=== PATIENT | female | born 1955 | race Caucasian/White ===

== ENCOUNTER 2023-11-28 02:04 | Outpatient (CLI) | payer MEDICARE, SELFPAY | END 2023-11-28 02:05 | disposition home or self-care (01) | LOC: AMB 12-01 18:12 | PROVIDERS: PCP Family Medicine; Visit Provider Family Medicine | DX: R53.1 Weakness (principal) | CPT/HCPCS: A0998 ==

== ENCOUNTER 2024-01-12 07:19 | Outpatient (CLI) | payer MEDICARE, SELFPAY | END 2024-01-12 07:20 | disposition home or self-care (01) | LOC: AMB 01-22 18:38 | PROVIDERS: PCP Family Medicine; Visit Provider Family Medicine | DX: R53.1 Weakness (principal); E66.9 Obesity, unspecified | CPT/HCPCS: A0998 ==

== ENCOUNTER 2024-03-28 03:01 | Outpatient (CLI) | payer MEDICARE, SELFPAY | END 2024-03-28 03:02 | disposition home or self-care (01) | LOC: AMB 04-03 18:58 | PROVIDERS: PCP Family Medicine; Visit Provider Family Medicine | DX: R20.0 Anesthesia of skin (principal) | CPT/HCPCS: A0998 ==

== ENCOUNTER 2024-04-13 05:25 | Outpatient (CLI) | payer MEDICARE, SELFPAY ==
--- OUTSIDE RECORDS SUMMARY | 2024-04-16 22:26 | XMS_ITS | Clinical Summary ---
Author Organization [employer] Address [place], [place] [address] Care Team Providers Care Enroller Name Role Phone Delia Hinds MD Primary Care Provide r Allergies Active Allergy Reactions Criticality Noted Date Comments Cephalexin Stomach Upset 04/16/2024 Fd And C No.5 (Tartrazine) Shortness Of [...] Encounters Date Type Department Care Team Description 04/16/2024 4:15 PM CDT Phone Office Visit [facility] [address] [place] [address] Delia Hinds MD ER Follow up (Abdominal pain/Took last antibiotic at 11 am today./Has not been taking any other medication since Monday.) 04/16/2024 Travel 04/16/2024 Nurse Triage [facility] [place] [address] [address] Delia Hinds MD Abdominal Pain 04/13/2024 Orders Only [facility] Scanner 1 scan: (1-Ord) NEVAEH CASTRO LT, 04/13/2024 03/25/2024 3:30 PM CDT Telemedicine [facility] [address] [place] [address] Hasmukh Blake PsyD, LP Individual Therapy; Telehealth 03/04/2024 2:45 PM CDT Telemedicine [facility] [address] [place] [address] Hasmukh Blake PsyD, LP Individual Therapy; Telehealth 03/04/2024 Travel 02/19/2024 2:00 PM CDT Telemedicine [facility] [address] [place] [address] Hasmukh Blake PsyD, MITRA Telehealth; Trmt Plan; Family Therapy 02/19/2024 Travel 01/25/2024 4:00 PM CDT Home Care Visit [facility] [address] [place] [address] Isauro Stapleton, PT PT - OASIS DISCHARGE 01/25/2024 Travel 01/16/2024 4:00 PM CDT Home Care Visit [facility] [address] [place] [address] Isauro Stapleton, PT PT - MISSED VISIT [...] Care Team (Late st Contact Info) Description 05/03/2024 12:45 PM CDT Telemedicine [facility] [address] [place] [phone] Hasmukh Blake, Harsha, LP [address] [place] [address] Health Maintenance Due Date Last Done Comments [...] Procedure Name Priority Date/Time Associated Diagnosis Comments SCAN-RADIOLOGY REPORT 04/13/2024 12:00 AM CDT LIPID PANEL W REFLEX MEASURED LDL Routine 03/12/2022 12:15 PM CDT Lipid screening from Last 3 Months or Most Recently Relevant to Health Maintenance Results * SCAN-RADIOLOGY REPORT (04/13/2024 12:00 AM CDT) Anatomical Region Laterality Modality Other Scanner OTHER * (ABNORMAL) LIPID PANEL W REFLEX MEASURED LDL (03/12/2022 12:15 PM CDT) CHOLESTEROL,TOTAL 239(H) 100 - 199 mg/dL 03/12/2022 1:23 PM T [facility] TRIGLYCERIDES 220(H) <150 mg/dL 03/12/2022 1:23 PM T [facility] HDL CHOLESTEROL 45 >40 mg/dL 1:23 PM [facility] NON-HDL CHOLESTEROL 194(H) <145 mg/dl 03/12/2022 1:23 PM [facility] CHOL/HDL RATIO 5.31(H) <4.50 03/12/2022 1:23 PM [facility] LDL CHOLESTEROL 150(H) <=130 mg/dL 03/12/2022 1:23 PM T [facility] VLDL CHOLESTEROL 44(H) <=30 mg/dL 03/12/2022 1:23 PM [facility] PROVIDER ORDERED STATUS RANDOM 03/12/2022 1:23 PM [facility] Blood BLOOD SPECIMEN / Unknown Venipuncture / Unknown 03/12/2022 12:15 PM CDT 03/12/2022 1:01 PM CDT Delia Hinds MD CHEMISTRY [facility] [address] [place] [address] from Last 3 Months or Most Recently Relevant to Health Maintenance Care Teams Enroller Relationship Specialty Start Date End Date Delia Hinds MD [address] [place] [address] PCP - General Family Practice 11/10/20
--- NOTE | 2024-04-17 14:39 | PC.SOCIAL ---
Social work follow up: Patient has not communicated her list of home care agencies she wants social work program coordinator to contact regarding MD order for home care written on 04/13/24. Another phone message was left on pt's phone requesting follow up from her regarding this. Also sent email to her requesting follow up. production utility worker is unable to move forward on arranging home care at this time as patient is not responding to communications. Emailed provider who ordered home care to communicate this information. Called [facility] Vulnerable Adult worker, Cecilia Gottlieb and informed her of patient not following through with facilitation of arranging home care order.
== END 2024-04-13 05:26 | disposition home or self-care (01) ==
LOC: AMB 04-16 22:24
PROVIDERS: PCP Family Medicine; Visit Provider Student in an Organized Health Care Education/Training Program
DX: R10.9 Unspecified abdominal pain (principal)
CPT/HCPCS: A0425; A0427

== ENCOUNTER 2024-04-13 06:41 | Emergency (ER) | payer MEDICARE, SELFPAY ==
--- NOTE | 2024-04-13 07:02 | CRLHL7_ITS ---
For Patients: As a result of the Century Cures Act, medical imaging exams and procedure reports are released immediately into your electronic medical record. You may view this report before your referring provider. If you have questions, please contact your health care provider. Indication: Pain. Injury. Technique: A total of three-view of the left shoulder were acquired. Comparison: None Findings: Bones: There are limitations due to soft tissue attenuation factors. No visible fracture. Joint spaces: Unremarkable. Soft tissues: Unremarkable. Impression: Limited study due to soft tissue attenuation factors. No visible acute fracture, dislocation or destructive process. Dictated by Eddie Major MD @ 04/13/2024 8:06:52 AM (Electronically Signed)
[2024-04-13 07:03] VITALS: BP 158/73; PULSE 99; RESP 24; TEMP 36.8; O2SAT 92
--- NOTE | 2024-04-13 07:33 | ED.GENADULT ---
HPI - General Adult General Date Seen: 04/13/24 Chief complaint: Abdominal Pain Stated complaint: Abdominal Pain Time Seen by Provider: 04/13/24 06:55 Source: patient and EMS Mode of arrival: EMS Limitations: no limitations History of Present Illness HPI narrative: Patient is a 68-year-old female presenting to the emergency department for suprapubic pain. She believe she had a UTI. Earlier in the night her arrived in the emergency department in attempt to get antibiotics for her but we informed him that she needs to be seen before we can do that. EMS was called to the house right after that. It took 10 people to get her out of her basement which she has not been out of for between 2 and 4 years. She is unable to ambulate on her own and states when she to go the bathroom just puts a diaper underneath her and then cleans her up. She states but time she arrived to the emergency department symptoms have fully resolved and she is no longer having any abdominal pain. She does think she has a UTI but does states she has no previous UTIs so has nothing to compare them to. Also states she was having constipation for 4 days but took some stool softeners and had an episode of diarrhea at about 03:00. Does have some left shoulder pain from a fall with a lift assist the few weeks ago. Denies nausea, vomiting, chest pain, shortness of breath, headache, weakness, numbness. Related Data Home Medications ?Medication ?Instructions ?Recorded ?Confirmed amlodipine 2.5 mg tablet 2.5 mg PO DAILY 04/13/24 04/13/24 gabapentin 300 mg capsule mg PO 04/13/24 lisinopril 5 mg tablet mg PO 04/13/24 pantoprazole 40 mg tablet,delayed 40 mg PO DAILY 04/13/24 04/13/24 release venlafaxine 150 mg 150 mg PO DAILY 04/13/24 04/13/24 capsule,extended release 24 hr Previous Rx's ?Medication ?Instructions ?Recorded cephalexin 500 mg capsule 500 mg PO QID #20 caps 04/13/24 nystatin 100,000 unit/gram topical 1 applic topical BID #30 grams 04/13/24 cream Allergies Allergy/AdvReac Type Severity Reaction Status Date / Time No Known Drug Allergies Allergy Verified 04/13/24 07:03 Review of Systems Status of ROS: Reports: 10 or more systems reviewed and unremarkable except as noted in History and below [facility] Social History Smoking Status: Never smoker Second hand tobacco smoke exposure: No How often do you have a drink containing alcohol: never How often do you have six or more drinks on one occasion: Never AUDIT-C Alcohol total score: 0 Non-prescribed substance use: denies use service: No Exam Narrative: Exam Narrative: Const: Morbidly obese, very poor hygiene noted Eyes: PERRL, no conjunctival injection, and symmetrical lids HENT: Atraumatic external nose and ears. Moist mucous membranes. Neck: Symmetric, trachea midline, No thyromegaly. CVS: RRR, No murmurs or gallops. Peripheral pulses 2+ and equal in all extremities RESP: Unlabored respiratory effort. Clear to auscultation bilaterally. GI: Nontender/Nondistended, No rebound or guarding. MSK:Extremities w/o deformity, Normal Active ROM Skin: Apparent fungal infection below bilateral breast, apparent fungal infection throughout the pannus, cellulitic appearance bilateral upper medial thighs with stage I ulcers bilaterally Neuro: Normal Muscle tone, No focal neurological deficits. Psych: Awake, Alert, & Oriented x3. Appropriate mood and affect. Const: Vital Signs, click to edit/add: Vital Signs - 24 hr 04/13/24 07:03 Temperature 98.2 F Pulse Rate [Pulse Oximeter] 99 Respiratory Rate 24 Blood Pressure [Le ft Forearm] 158/73 H Pulse Oximetry 92 Oxygen Delivery Me thod Room Air Course Vital Signs Vital signs: Initial Vital Signs Temperature 98.2 F 04/13/24 07:03 Temperature Source Temporal Artery Scan 04/13/24 07:03 Pulse Rate 99 04/13/24 07:03 Pulse Rhythm Regular 04/13/24 07:03 Pulse Strength 3+ Normal 04/13/24 07:03 Respiratory Rate 24 04/13/24 07:03 Blood Pressure 158/73 H 04/13/24 07:03 Blood Pressure Mean 101 04/13/24 07:03 Blood Pressure Position Sitting 04/13/24 07:03 Pulse Oximetry 92 04/13/24 07:03 Oxygen Delivery Method Room Air 04/13/24 07:03 Vital Signs Temperature 98.2 F 04/13/24 07:03 Pulse Rate 99 04/13/24 07:03 Respiratory Rate 24 04/13/24 07:03 Blood Pressure 158/73 H 04/13/24 07:03 Pulse Oximetry 92 04/13/24 07:03 Oxygen Delivery Method Room Air 04/13/24 07:03 Temperature 98.2 F 04/13/24 07:03 Pulse Rate 99 04/13/24 07:03 Respiratory Rate 24 04/13/24 07:03 Blood Pressure 158/73 H 04/13/24 07:03 Pulse Oximetry 92 04/13/24 07:03 Oxygen Delivery Method Room Air 04/13/24 07:03 Medical Decision Making MDM Narrative Medical decision making narrative: This is a 68-year-old female who is morbidly obese presenting for concerns of a UTI. Her symptoms have resolved now but will do a CBC, CMP, urinalysis. Also x-ray the left shoulder. Is not requesting anything for pain or nausea at this time. She states her is taking care of her and is doing a good job but I do not believe she is getting the appropriate amount of care that is required for a person of her size. EMS states they are filing a vulnerable adult. She believes her is able but he care of her at home but it does not appear that that is truly the case and she requires more help than what her can offer at this time. Since her pain is no longer there I do not believe any imaging of her abdomen is necessary. White cell count came back at 17.35. It is neutrophil predominant. This is sinus she has an infection somewhere but I am not sure where at this time. Her vital signs are stable. CMP shows no concerning abnormalities. Urinalysis returned showing no obvious signs of a UTI. At this time I am unsure what is causing this elevated white blood cell count. Some of it can be related to her obesity but not all. I spoke to her about admission for placement which she does not want but is open to home health. I spoke to our hospitalist possible admission if he states that a white count of 17 is not a reason alone to admit the patient. This very well could be the patient's baseline after she has been homebound for several years. The I will discharge her home. She is agreeable to this plan. While she does not have convincing UTI I will treat her with Keflex and I will give her nystatin cream. I filled out the paperwork for home health. Lab Data Labs: Lab Results 04/13/24 04/13/24 Range/Units 08:00 08:47 WBC 17.35 H (4.50-11.00) K/uL RBC 5.38 H (4.00-5.20) m/uL Hgb 13.8 (12.0-16.0) gm/dL Hct 44.7 (33.0-51.0) % MCV 83 (80-100) fL MCH 26 (26-34) pg MCHC 31 L (32-36) gm/dL RDW Coeff of Valentine 14.7 (11.5-15.5) % Plt Count 427 (140-440) K/uL Neut % (Auto) 89.9 H (42.0-72.0) % Lymph % (Auto) 3.6 L (20-44) % Mora % (Auto) 5.8 (0.0-11.0) % Eos % (Auto) 0.2 (0.0-7.0) % Baso % (Auto) 0.2 (0.0-3.0) % Neut # (Auto) 15.60 H (1.7-7.0) K/uL Lymph # (Auto) 0.60 L (0.90-2.90) K/uL Mora # (Auto) 1.00 H (0.00-0.90) K/UL Eos # (Auto) 0.00 (0.00-0.50) K/uL Baso # (Auto) 0.00 (0.00-0.30) K/uL Abs Immat Gran (auto) 0.10 (0.00-0.30) K/uL Imm/Tot Granulo (auto) 0.3 % Sodium 138 (135-149) mmol/L Potassium 3.7 (3.6-5.1) mmol/L Chloride 104 (96-114) mmol/L Carbon Dioxide 26 (20-32) mmol/L Anion Gap 8 (7-15) mEq/L BUN 10 (7-30) mg/dL Creatinine 0.9 (0.5-1.5) mg/dL Estimated GFR 71 ml/min Glucose 132 H (60-115) mg/dL Calcium 9.7 (8.4-10.6) mg/dL Total Bilirubin 1.2 (0.1-1.5) mg/dL AST 30 (12-35) U/L ALT 21 (4-35) U/L Alkaline Phosphatase 79 (40-150) U/L Total Protein 7.6 (6.0-8.3) g/dL Albumin 4.3 (3.3-5.0) g/dL Urine Color Yellow (Yellow) Urine Appearance Clear (Clear) Urine pH 8.5 (5.0-8.5) Ur Specific [place] 1.020 (1.000-1.030) Urine Protein Negative (Negative) Urine Glucose (UA) Negative (Negative) Urine Ketones Negative (Negative) Urine Blood Trace-intact A (Negative) Urine Nitrite Negative (Negative) Urine Bilirubin Negative (Negative) Urine Urobilinogen 0.2 (0.2-1.0) Ur Leukocyte Esterase Trace A (Negative) Urine RBC 0-2 (0-2) Urine WBC 0-2 (0-5) Ur Squamous Epith Cells Moderate A (None-Few) Urine Bacteria Moderate A (None) Urine Yeast Few A (None) Imaging Data Left shoulder x-ray: Attestation: I have reviewed the pertinent imaging results. Radiologist's impression: Limited study due to soft tissue attenuation factors. No visible acute fracture, dislocation or destructive process. Dictated by Eddie Major MD @ 04/13/2024 8:06:52 AM Discharge Plan Discharge Clinical Impression: Acute UTI, Milka infection Patient Disposition: Home, Self-Care Condition: Stable Instructions: Yeast Infection (ED) Additional Instructions: Make sure to clean and dry your skin folds and placed on nystatin cream as directed. Use the antibiotics as directed. He should get a call on Monday to set up home health. Return for new or worsening symptoms Prescriptions: New nystatin 100,000 unit/gram cream 1 applic topical BID Qty: 30 0RF cephalexin 500 mg capsule 500 mg PO QID Qty: 20 0RF No Action venlafaxine 150 mg capsule,extended release 24hr 150 mg PO DAILY amlodipine 2.5 mg tablet 2.5 mg PO DAILY pantoprazole 40 mg tablet,delayed release (DR/EC) 40 mg PO DAILY gabapentin 300 mg capsule PO lisinopril 5 mg tablet PO Follow Up/Referrals: Delia Hinds MD [Primary Care Provider] - Stand Alone Forms: [facility] Info Instructions
[2024-04-13 08:06] LABS: Basophils Percent Auto 0.2 % (0.0-3.0); Eosinophils Percent Auto 0.2 % (0.0-7.0); Hematocrit 44.7 % (33.0-51.0); Hemoglobin* 13.8 gm/dL (12.0-16.0); Immature Granulocytes Pct Auto 0.3 %; Lymphocytes Percent Auto 3.6 % (20-44); Mean Corpuscular HGB Conc 31 gm/dL (32-36); Mean Corpuscular Hemoglobin 26 pg (26-34); Mean Corpuscular Volume 83 fL (80-100); Monocytes Percent Auto 5.8 % (0.0-11.0); Neutrophils Percent Auto 89.9 % (42.0-72.0); Platelet Count* 427 K/uL (140-440); RDW Coefficient of Variation % 14.7 % (11.5-15.5); Red Blood Count 5.38 m/uL (4.00-5.20); White Blood Count* 17.35 K/uL (4.50-11.00)
[2024-04-13 08:11] LABS: Slide Review Reflex No
[2024-04-13 08:19] LABS: Albumin* 4.3 g/dL (3.3-5.0); Chloride* 104 mmol/L (96-114)
[2024-04-13 08:20] LABS: Potassium* 3.7 mmol/L (3.6-5.1); Sodium* 138 mmol/L (135-149)
[2024-04-13 08:22] LABS: Alkaline Phosphatase* 79 U/L (40-150); Anion Gap 8 mEq/L (7-15); Aspartate Amino Transferase* 30 U/L (12-35); Bilirubin Total* 1.2 mg/dL (0.1-1.5); Blood Urea Nitrogen* 10 mg/dL (7-30); Carbon Dioxide* 26 mmol/L (20-32); Creatinine* 0.9 mg/dL (0.5-1.5); Estimated Glomerular Filt Rate 71 ml/min; Total Protein* 7.6 g/dL (6.0-8.3)
[2024-04-13 08:23] LABS: Alanine Aminotransferase* 21 U/L (4-35); Calcium* 9.7 mg/dL (8.4-10.6); Glucose* 132 mg/dL (60-115)
[2024-04-13 08:55] LABS: Appearance Urine Clear (Clear); Bilirubin Urine Negative (Negative); Blood Urine Trace-intact (Negative); Color Urine Yellow (Yellow); Glucose Urine Negative (Negative); Ketones Urine Negative (Negative); Leukocyte Esterase Urine Trace (Negative); Nitrite Urine Negative (Negative); Protein Urine Negative (Negative); Urobilinogen Urine 0.2 (0.2-1.0); pH Urine 8.5 (5.0-8.5)
[2024-04-13 09:17] LABS: Bacteria Urine Moderate; RBC Urine 0-2 (0-2); Squamous Epithelial Cell Urine Moderate (None-Few); WBC Urine 0-2 (0-5)
--- OUTSIDE RECORDS SUMMARY | 2024-04-13 10:20 | XMS_ITS | Clinical Summary ---
Author Organization [employer] [facility] [employer] Address [place], [place] [address] Care Team Providers Care Software Development Coordinator Name Role Phone Delia Hinds MD Primary Care Provide r Allergies Active Allergy Reactions Criticality Noted Date Comments Fd And C No.5 (Tartrazine) Shortness Of Breath 11/10/2020 Medications Medication Sig Dispensed Refills Start Date End Date Status ascorbic acid, vitamin C, (VITAMIN C) 250 mg tablet Take 2 tablets by mouth once daily. 0 0 Active miscellaneous medical supply (BLOOD PRESSURE CUFF) miscIndications:HTN (hypertension) As directed. Wrist blood pressure cuff. Diagnosis hypertension. 1 unit 1 Active magnesium oxide (MAG-OX 400) 400 mg tablet Take 1 Tablet (400 mg) by mouth once daily. 0 2 Active acetaminophen (TYLENOL EXTRA STRGTH) 500 mg tabletIndications:Lurdes n Take 2 Tablets (1,000 mg) by mouth every 6 hours if needed for Pain. Max acetaminophen dose: 4000mg in 24 hrs. 0 2 Active multivitamin (MVI) tablet Take 2 Tablets by mouth once daily. 0 2 Active pantoprazole (PROTONIX) 40 mg delayed-release tabletIndications:His tory of gastroesophageal reflux (GERD) Take 1 Tablet (40 mg) by mouth once daily. 90 Tablet 3 3 Active aspirin (ECOTRIN) 81 mg enteric coated tabletIndications:Jimmy thromelalgia (HC) Take 1 Tablet (81 mg) by mouth once daily with a meal. 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 90 Tablet 3 4 Active levothyroxine (SYNTHROID) 75 mcg tabletIndications:Hyp othyroidism (acquired) Take 1 Tablet (75 mcg) by mouth once daily. 90 Tablet 3 4 Active lisinopriL (PRINIVIL; ZESTRIL) 5 mg tabletIndications:HTN (hypertension) Take 1 Tablet (5 mg) by mouth once daily. 90 Tablet 3 4 Active venlafaxine (EFFEXOR XR) 150 mg Extended-Release capsuleIndications:Ge neralized anxiety disorder Take 1 Capsule (150 mg) by mouth once daily with evening meal. 90 Capsule 3 4 Active Active Problems Problem Noted Date Diagnosed Date Panic disorder with agoraphobia and moderate sneed ic attacks 02/19/2024 Generalized anxiety disorder 02/19/2024 Peripheral sensory neuropathy 12/15/2020 Erythromelalgia 11/13/2020 HTN (hypertension) 11/13/2020 Hypothyroidism (acquired) 09/03/2020 Gout 09/03/2020 Encounters Date Type Department Care Team Description 03/25/2024 3:30 PM CDT Telemedicine [facility] [address] [place] [address] Hasmukh Blake PsyD, LP Individual Therapy; Telehealth 03/04/2024 2:45 PM CDT Telemedicine [facility] [address] [place] [address] Hasmukh Blake PsyD, LP Individual Therapy; Telehealth 03/04/2024 Travel 02/19/2024 2:00 PM CDT Telemedicine [facility] [address] [place] [address] [facility] 02/19/2024 Travel 01/25/2024 4:00 PM CDT Home Care Visit [facility] [address] [place] [address] Isauro Stapleton, PT PT - OASIS DISCHARGE 01/25/2024 Travel 01/16/2024 4:00 PM CDT Home Care Visit [facility] [address] [place] [address] Isauro Stapleton, PT PT - MISSED VISIT from Last 3 Months Family History Medical History Relation Name Comments Coronary artery disease Father Hypertension Father Parkinsonism Mother Schizophrenia Mother Relation Name Status Comments Father Mother Social History Tobacco Use Types Packs/Day Years Used Date Smoking Tobacco: Never Smokeless Tobacco: Never Tobacco Cessation:Counseling Given: Yes Alcohol Use Standard Drinks/Week Comments Not Currently 0 (1 standard drink = 0.6 oz pur e alcohol) PHQ-2 Answer Date Recorded PHQ-2 TOTAL SCORE 2 02/19/2024 Social Connections Answer Date Recorded Frequency of Communication with Friends and Fami ly Not on file 09/14/2021 Financial Resource Strain Answer Date R ecorded Difficulty of Paying Living Expenses Not on file 09/14/2021 Difficulty of Paying Living Expenses Not on file 09/14/2021 Sex and Gender Information Value Date Recorded Sex Assigned at Not on file Gender Identity Not on file Sexual Orientation Not on file Obstetrics History Last Filed Vital Signs Vital Sign Reading Time Taken Comments Blood Pressure 144/100 01/25/2024 4:26 PM CDT Pulse 82 01/25/2024 4:26 PM CDT Temperature 37 ??C (98.6 ??F) 01/25/2024 4:26 PM CDT Respiratory Rate 18 01/25/2024 4:26 PM CDT Oxygen Saturation 91% 01/25/2024 4:26 PM CDT Inhaled Oxygen Concentration - - Weight - - Height - - Body Mass Index - - Plan of Treatment Upcoming Encounters Date Type Department Care Team (Late st Contact Info) Description 04/17/2024 3:15 PM CDT Telemedicine [facility] [address] [place] [phone] Hasmukh Blake PsyD, LP [address] [place] [address] Health Maintenance Due Date Last Done Comments Tdap 1968 BMI (ht and wt on same day) for age 18+ 1975 Hepatitis C screening for ag e 18-79 1975 Tetanus booster 1977 Colonoscopy through age 75 2002 Mammogram for age 45-75 2002 Zoster (shingles) series for age 50+ (1 of 2) 2007 DEXA/DXA scan for age 65+ 2022 Medicare Wellness for age 65+ 2022 Pneumococcal series for age 65+ (1 of 1 - PCV) 2022 COVID-19 vaccine series ( - 2022-24 season) 2023 Influenza for age 65+ 05/19/2024 Depression screening for age 12+ 02/18/2025 02/19/2024, 12/21/2023, 12/01/2023, Additional history exists Lipids for age 45-75 03/12/2027 03/12/2022, 09/01/20 20 Procedures Procedure Name Priority Date/Time Associated Diagnosis Comments LIPID PANEL W REFLEX MEASURED LDL Routine 03/12/2022 12:15 PM CDT Lipid screening from Last 3 Months or Most Recently Relevant to Health Maintenance Results * (ABNORMAL) LIPID PANEL W REFLEX MEASURED LDL (03/12/2022 12:15 PM CDT) CHOLESTEROL,TOTAL 239(H) 100 - 199 mg/dL 03/12/2022 1:23 PM [facility] TRIGLYCERIDES 220(H) <150 mg/dL 03/12/2022 1:23 PM [facility] HDL CHOLESTEROL 45 >40 mg/dL 1:23 PM [facility] NON-HDL CHOLESTEROL 194(H) <145 mg/dl 03/12/2022 1:23 PM [facility] CHOL/HDL RATIO 5.31(H) <4.50 03/12/2022 1:23 PM [facility] LDL CHOLESTEROL 150(H) <=130 mg/dL 03/12/2022 1:23 PM [facility] VLDL CHOLESTEROL 44(H) <=30 mg/dL 03/12/2022 1:23 PM CDT [facility] PROVIDER ORDERED STATUS RANDOM 03/12/2022 1:23 PM CDT [facility] Blood BLOOD SPECIMEN / Unknown Venipuncture / Unknown 03/12/2022 12:15 PM CDT 03/12/2022 1:01 PM CDT Delia Hinds MD CHEMISTRY [facility] [address] [place] [address] from Last 3 Months or Most Recently Relevant to Health Maintenance Care Teams Software Development Coordinator Relationship Specialty Start Date End Date [place] [address] [address] PCP - General Family Practice 11/10/20
--- NOTE | 2024-04-16 10:36 | PC.SOCIAL ---
Social work: Late Entry:On 04/15/24, Per MD order from the ED for home health care, RN for wound care, PT, OT and bathing aid to be arranged, called pt and spoke with her at home. Pt states she is willing to accept a home health nurse and aid but refused arrangement of PT/OT at this time. shell worker explained process for arranging home care. At pt request, emailed to her ([email or web address]) a resource list of home care agencies serving her area with Department of Health ratings and information on how to find these ratings. Pt staed during phone call that social work administrator should wait for her to indicate which agencies she wanted called before proceeding with referral for home care. Email send at 11:00am. Pt did not respond to email or call social work administrator all day with preferred home care agency. Rach Gottlieb [facility] Vulnerable Adult worker called and requested MD note on pt visit be sent to her as a vulnerable adult report was filed on this patient. Secure emailed requested information to Rach Gottlieb. On 04/16/24, called and emailed pt requesting information on which home care agencies she would like me to contact. No response yet at this time. Called Andrew at [phone]. 's voicemail is full and does not allow messages to be left. shell worker to follow up as needed.
== END 2024-04-13 13:34 | disposition home or self-care (01) ==
LOC: ED 10:19
PROVIDERS: Emergency Provider Student in an Organized Health Care Education/Training Program; PCP Family Medicine
DX: N39.0 Urinary tract infection, site not specified (principal); B37.2 Candidiasis of skin and nail; M25.512 Pain in left shoulder; W19.XXXA Unspecified fall, initial encounter
CPT/HCPCS: 36415; 73030; 80053; 81001; 85025; 87086; 99284